=== PATIENT | male | born 1950 | race African-American/Black ===

== ENCOUNTER 2018-10-11 05:51 | Day surgery (SDC) | payer MEDICARE, OTHER ==
[~2018-10-11] VITALS: Ht 182.9 cm; Wt 126.1 kg
[2018-10-11] VITALS (11 sets, daily range): BP systolic 127–157; BP diastolic 68–90; PULSE 65–84; TEMP 98.6
[2018-10-11 06:31] LABS: HEMATOCRIT 37.2 % (42.0-52.0); HEMOGLOBIN 12.6 g/dl (13.5-18.0); MEAN CELL VOLUME 100 fl (80.0-100.0); MEAN CORPUSCULAR HEMOGLOBIN 34 pg (27.0-31.0); MEAN CORPUSCULAR HGB CONC 34 g/dl (33.0-37.0); MEAN PLATELET VOLUME 9.9 fl (7.4-10.4); PLATELET COUNT 183 K/mm3 (130-400); RED BLOOD COUNT 3.71 M/mm3 (4.20-5.60); REDCELL DISTRIBUTION WIDTH-CV 12.9 % (11.5-14.5)
[2018-10-11 06:38] LABS: INR 0.9 (0.8-3.0); PROTHROMBIN TIME 10.7 SECONDS (9.7-12.8)
[2018-10-11 06:41] LABS: CALCIUM 9.1 mg/dL (8.4-10.2); CREATININE, serum 1.11 (0.66-1.25); POTASSIUM 4.3 mmol/L (3.4-5.0)
[2018-10-11] MEDS ORDERED: NORVASC 10MG10 MG PO (07:07)
[2018-10-11] MEDS ORDERED: CORRECTIVE LAXAT5 MG PO (07:07)
[2018-10-11] MEDS ORDERED: LIPITOR20 MG PO (07:08)
[2018-10-11] MEDS ORDERED: LIORESAL 1010 MG/TAB PO (07:08)
[2018-10-11] MEDS ORDERED: CYMBALTA 30MG30 MG PO (07:09)
[2018-10-11] MEDS ORDERED: FLONASEALLERGY NS (07:10)
[2018-10-11] MEDS ORDERED: AMARYL 2MG T2 MG/TAB PO (07:10)
[2018-10-11] MEDS ORDERED: NORCO 325 MG-7.1 TAB PO (07:11)
[2018-10-11] MEDS ORDERED: COZAAR100 MG PO (07:13)
[2018-10-11] MEDS ORDERED: GLUCOPHAGE1000 MG PO (07:13)
[2018-10-11] MEDS ORDERED: TOPROL XL100 MG PO (07:14)
[2018-10-11] MEDS ORDERED: ASPIRIN 81M81 MG/TA2 PO (07:14)
--- NOTE | 2018-10-11 07:55 | NUR ---
Pt to procedure at thsi time.
--- NOTE | 2018-10-11 08:08 | NUR ---
ALL MEDICATIONS GIVEN WITH VORB WITH MD. SEE MERGE FOR ALL MEDICATION ADMIN TIMES. SEE MERGE FOR RASS ASSESSMENTS DURING AND POST PROCEDURE. POSITIVE BARBEAU'S TEST IN THE RIGHT WRIST.
--- NOTE | 2018-10-11 13:03 | NUR ---
Discharge instructions given to pt.Pt verbalizes understanding.INT removed,catheter tip intact.
--- NOTE | 2018-10-11 13:20 | NUR ---
Pt escorted out via wheelchair by student nurse.
== END 2018-10-11 13:21 | disposition home or self-care (01) ==
LOC: COL.CAR 05:51
PROVIDERS: Internal Medicine Cardiovascular Disease
DX: I25.118 Atherosclerotic heart disease of native coronary artery with other forms of angina pectoris (principal); I10 Essential (primary) hypertension; E78.5 Hyperlipidemia, unspecified; E11.9 Type 2 diabetes mellitus without complications; E66.9 Obesity, unspecified; Z79.4 Long term (current) use of insulin; Z79.51 Long term (current) use of inhaled steroids; Z79.82 Long term (current) use of aspirin; N17.9 Acute kidney failure, unspecified; Z88.2 Allergy status to sulfonamides; Z88.8 Allergy status to other drugs, medicaments and biological substances; Z88.1 Allergy status to other antibiotic agents
CPT/HCPCS: J1644; J2250; J3010; Q9967